=== PATIENT | male | born 1960 | race African-American/Black ===

== ENCOUNTER 2019-08-11 17:55 | Emergency (ER) | payer MEDICARE | END 2019-08-11 18:35 | disposition home or self-care (01) | LOC: ERS 17:55 | DX: G89.29 Other chronic pain (principal); M54.6 Pain in thoracic spine; I10 Essential (primary) hypertension; F41.9 Anxiety disorder, unspecified; F17.210 Nicotine dependence, cigarettes, uncomplicated; Z79.899 Other long term (current) drug therapy | CPT/HCPCS: 99283 ==

== ENCOUNTER 2024-10-02 15:28 | Outpatient (CLI) | payer OTHER | END 2024-10-02 15:29 | disposition home or self-care (01) | LOC: BICRAD 15:28 | PROVIDERS: ATTEND Family Medicine | DX: M54.50 Low back pain, unspecified (principal); M47.816 Spondylosis without myelopathy or radiculopathy, lumbar region | CPT/HCPCS: 72100 ==

== ENCOUNTER 2025-02-13 11:22 | Outpatient (CLI) | payer OTHER | END 2025-02-13 11:23 | disposition home or self-care (01) | LOC: BICCT 11:22 | PROVIDERS: ATTEND Family Medicine | DX: Z12.2 Encounter for screening for malignant neoplasm of respiratory organs (principal); F17.211 Nicotine dependence, cigarettes, in remission | CPT/HCPCS: 71271 ==